=== PATIENT | male | born 1995 | race Caucasian/White ===

== ENCOUNTER 2024-05-22 16:27 | Emergency (ER) | payer MEDICAID ==
[~2024-05-22] VITALS: Ht 182.9 cm; Wt 108.9 kg
[2024-05-22 16:33] VITALS: BP_SYST 164; PULSE 114; RESP 20; TEMP 98.3; O2SAT 98
[2024-05-22] MEDS ORDERED: HYDR-3927 PO (17:24)
[2024-05-22] MEDS ORDERED: IBUP-1971 PO (17:24)
[2024-05-22 17:34] VITALS: BP_SYST 156; PULSE 111; RESP 20; TEMP 98.3; O2SAT 98
== END 2024-05-22 17:40 | disposition home or self-care (01) ==
LOC: SED 16:27
DX: M77.11 Lateral epicondylitis, right elbow (principal); Z79.899 Other long term (current) drug therapy
CPT/HCPCS: 99283